=== PATIENT | female | born 1960 | race Caucasian/White ===

== ENCOUNTER → 2016-12-13 | Outpatient (REF) | payer BC | LOC: M SFHCWAGY 08:57 | PROVIDERS: ATTEND Nurse Practitioner Family | DX: Z12.4 Encounter for screening for malignant neoplasm of cervix (principal) ==

== ENCOUNTER → 2016-12-13 | Outpatient (CLI) | payer BC ==
--- NOTE | 2016-12-13 10:25 | REPMRS ---
Patient History The patient states she had a clinical breast exam in 12/25 Patient is postmenopausal and had first child at age 38. Family history of breast cancer in paternal aunt at age 50 or over and breast cancer in paternal grandmother at age 50 or over. Digital Woman Screen Mammo: December 13, 2016 - Exam #: [id number] Bilateral CC and MLO view(s) were taken. Technologist: Savanna Patterson, Technologist Prior study comparison: May 12, 2015, digital woman screen mammo performed at [facility] [employer] [place] [facility]. March 18, 2014, digital woman screen mammo performed at [facility] [employer] [place] [facility]. FINDINGS: There are scattered fibroglandular densities. There has been no change in the appearance of the mammogram from the prior studies. There is a mild amount of scattered fibroglandular density which is fairly symmetric. There is no interval development of dominant mass, architectural distortion, or clustered microcalcification suggestive of malignancy. ASSESSMENT: BI-RADS/ACR category 1 mammogram. Negative. Recommendation Routine screening mammogram in 1 year (for women over age 40). This mammogram was interpreted with the aid of an FDA-approved computer-aided dectection system. Electronically Signed By: Sorin Fields MD 12/13/16 1024
== END ==
LOC: M WHC 08:27
PROVIDERS: ATTEND Nurse Practitioner Family
DX: Z12.31 Encounter for screening mammogram for malignant neoplasm of breast (principal); Z78.0 Asymptomatic menopausal state; Z80.3 Family history of malignant neoplasm of breast

== ENCOUNTER → 2018-06-28 | Outpatient (CLI) | payer BC | LOC: M WUC 15:53 | DX: S62.657A Nondisplaced fracture of middle phalanx of left little finger, initial encounter for closed fracture (principal) | CPT/HCPCS: 73140 ==

== ENCOUNTER → 2018-09-25 | Outpatient (CLI) | payer BC ==
--- NOTE | 2018-09-25 10:01 | REP ---
RIGHT FINGERS, FOUR VIEWS: HISTORY: Foreign body. There is no acute fracture or dislocation. The joint spaces are normal in appearance. There is no radiopaque foreign body. IMPRESSION: There is no radiopaque foreign body. Electronically Signed by Roberto Redding MD 09/25/2018 10:04 A
== END ==
LOC: M WUC 09:26
PROVIDERS: ATTEND Nurse Practitioner Family
DX: S60.351A Superficial foreign body of right thumb, initial encounter (principal); X58.XXXA Exposure to other specified factors, initial encounter; Y92.89 Other specified places as the place of occurrence of the external cause

== ENCOUNTER → 2019-03-01 | Outpatient (CLI) | payer BC ==
--- NOTE | 2019-03-01 12:59 | REP ---
Lumbar spine three views: There are no comparisons. There is scoliosis convex right in the upper lumbar area. The vertebral body heights, interspacing alignment are unremarkable. The pedicles, facets and sacroiliac articulations are unremarkable. Impression: Scoliosis, otherwise negative lumbar spine. Electronically Signed by Maurice Hutchins MD 03/01/2019 12:51 P
== END ==
LOC: M WUC 10:25
PROVIDERS: ATTEND Physician Assistant
DX: M41.26 Other idiopathic scoliosis, lumbar region (principal)

== ENCOUNTER → 2020-03-29 | Outpatient (CLI) | payer BC ==
--- NOTE | 2020-03-29 12:29 | REP ---
Clinical: Shortness of breath. Technique: PA and lateral. Comparison: 04/03/2012. Findings: Mediastinum and cardiac silhouette are normal. Chronic emphysematous changes are suggested. No focal consolidation, effusion, or pneumothorax. Skeletal structures are intact. Impression: Findings suggest chronic emphysematous disease. If the patient remains symptomatic consider chest CT for further investigation. Electronically Signed by Julian Florentino MD 03/29/2020 12:21 P
== END ==
LOC: M WUC 12:04
PROVIDERS: ATTEND Family Medicine
DX: R91.8 Other nonspecific abnormal finding of lung field (principal); R06.02 Shortness of breath

== ENCOUNTER → 2020-06-24 | Outpatient (CLI) | payer BC ==
--- NOTE | 2020-06-24 10:05 | REP ---
INDICATION: EMPHYSEMA, COUGH COMPARISON: 04/03/2012 TECHNIQUE: Axial noncontrast images from the thoracic inlet to the upper abdomen with coronal and sagittal reformations. FINDINGS: Biapical and minimal lingular scarring is again appreciated and similar to prior examination. Lung harden demonstrate mild emphysematous changes and mild bronchiectasis. No consolidation, IV is suspicious nodule or mass lesion. No pleural effusion. No pneumothorax. Limited evaluation of the mediastinum demonstrates mild atherosclerotic changes. No cardiomegaly or pericardial effusion. No obvious adenopathy. Musculoskeletal structures are intact. IMPRESSION: 1. Chronic appearing changes and mild COPD/emphysematous disease. 2. No acute mediastinal or pleuroparenchymal process appreciated. <Electronically signed by Julian Florentino > 06/24/20 1002
== END ==
LOC: M RAD 08:37
PROVIDERS: ATTEND Nurse Practitioner Family
DX: J43.9 Emphysema, unspecified (principal); F17.210 Nicotine dependence, cigarettes, uncomplicated; R05 Cough

== ENCOUNTER → 2020-07-08 | Outpatient (CLI) | payer BC ==
[~2020-07-08] MED LIST: METHACHOLINE KIT (J7674) INH ONE
--- NOTE | 2020-07-08 10:05 | PFTRPT ---
Height: 64.50 Inches Weight: 95.00 Lbs BSA: 1.43 Diagnosis: R05 DATE: 07/08/2020 ORDERED BY: ANDRE Pardo. QUALITY: Study of excellent technical quality. PROCEDURE: Under protocol, methacholine was administered. At a dose of 10 mg or 63.75 CDUs, a 24% decline of the FEV1 was noted. PC of 6.39 is significant. Flow rates did return to baseline post-bronchodilator administration. IMPRESSION: Positive methacholine challenge study. MTDD
== END ==
LOC: M CARPUL 08:45
PROVIDERS: ATTEND Nurse Practitioner Family
DX: R05 Cough (principal); R94.2 Abnormal results of pulmonary function studies
CPT/HCPCS: 94070; J7674

== ENCOUNTER → 2020-07-10 | Outpatient (CLI) | payer SELFPAY | LOC: M LABSMTC 09:05 | PROVIDERS: ATTEND Pediatrics | DX: Z20.828 Contact with and (suspected) exposure to other viral communicable diseases (principal) ==

== ENCOUNTER → 2020-07-17 | Outpatient (CLI) | payer SELFPAY | LOC: M LABSMTC 08:52 | PROVIDERS: ATTEND Pediatrics | DX: Z20.828 Contact with and (suspected) exposure to other viral communicable diseases (principal) ==

== ENCOUNTER → 2021-06-16 | Outpatient (CLI) | payer BC | LOC: M LABSMTC 10:02 | PROVIDERS: ATTEND Pediatrics | DX: Z11.52 Encounter for screening for COVID-19 (principal) | CPT/HCPCS: C9803; U0003 ==

== ENCOUNTER → 2021-08-18 | Outpatient (REF) | payer BC ==
[~2021-08-18] MED LIST changes: +ALBU8.5H; +CALC600T61 PO; +CVS5000S2 SL; +IPRA6SP; -METHACHOLINE KIT (J7674) INH ONE
== END ==
LOC: M SFHCWAGY 13:30
PROVIDERS: ATTEND Nurse Practitioner Women's Health
DX: Z12.4 Encounter for screening for malignant neoplasm of cervix (principal)
CPT/HCPCS: 87624; G0123

== ENCOUNTER → 2021-08-18 | Outpatient (CLI) | payer BC ==
--- NOTE | 2021-08-18 11:01 | REPMRS ---
Patient History The patient states she has not had a clinical breast exam in over a year. Patient is postmenopausal and had first child at age 38. Family history of breast cancer at age 50 or over in paternal grandmother, breast cancer at age 50 or over in paternal aunt, prostate cancer in father, ovarian cancer at age 83 in mother. Patient states no breast complaints today. Patient has signed MRS History Sheet. Digital Woman Screen Mammo: August 18, 2021 - Exam #: [id number] Bilateral CC and MLO view(s) were taken. Technologist: Savanna Patterson, Technologist Prior study comparison: December 13, 2016, digital woman screen mammo performed at [facility]. May 12, 2015, digital woman screen mammo performed at [facility]. FINDINGS: The breast tissue is heterogeneously dense. This may lower the sensitivity of mammography. Screening. Digital screening (2D) mammography was performed bilaterally in the CC and MLO projections. Additionally, breast tomosynthesis (3D mammography) was performed bilaterally in the CC and MLO projections. Todays exam was compared to the prior exam/exams. By history, the patient has no complaints of a palpable breast abnormality or other significant breast complaints. The Volpara volumetric breast density category is C, the breasts are heterogenously dense which may obscure small masses. The breasts are unchanged in size and shape. There are no rhianna-soft tissue densities or spiculated masses. There is no internal architectural distortion. There are no suspicious rhianna-calcific clusters. Skin thickening or nipple retraction is not present. IMPRESSION: BI-RADS Category 2- Benign Findings. There is no evidence of malignant alteration of the breasts. Followup examination recommended in one year. This mammogram [facility] FDA approved computer aided detection system for mammography. The lifetime Tyrer-Cuzick score is 17.0% Negative x-ray reports should not delay surgical consultation if a dominant or clinically suspicious mass is present. Due to the density of the breasts, MRI/whole breast screening ultrasound is warranted. Not all breast cancers can be identified by mammography. Therefore, we recommend that you continue to perform regular breast self-examination and physical examination and then promptly contact your physician of any concerns or changes. Adenosis and dense breasts may obscure an underlying neoplasm. No significant changes when compared with prior studies. Assessment: BI-RADS/ACR category 2 mammogram. Benign Findings. Recommendation Routine screening mammogram of both breasts in 1 year. Electronically Signed By: Teo Lan MD 08/18/21 1100
== END ==
LOC: M WHC 08:45
PROVIDERS: ATTEND Nurse Practitioner Women's Health
DX: Z12.31 Encounter for screening mammogram for malignant neoplasm of breast (principal)

== ENCOUNTER → 2021-10-27 | Outpatient (CLI) | payer BC | LOC: M LABSMTC 09:08 | PROVIDERS: ATTEND Anesthesiology | DX: Z01.818 Encounter for other preprocedural examination (principal); Z11.52 Encounter for screening for COVID-19 ==

== ENCOUNTER 2021-10-31 10:38 | Day surgery (SDC) | payer BC ==
[~2021-10-31] VITALS: Ht 162.6 cm; Wt 44.2 kg
[~2021-10-31 10:38] MED LIST changes: +LR 1,000 ML IV ONE
[2021-10-31] MEDS ORDERED: MIDAZOLAM INJ 2MG/2ML VIAL (J2250 PER 1MG) As Ordered ONE (13:03)
[2021-10-31] MEDS ORDERED: dexameTHASONE 4 MG/ML 1ML VIAL (J1100 PER 1MG) As Ordered ONE (13:03)
[2021-10-31] MEDS ORDERED: fentaNYL 100 MCG/2 ML INJECTION As Ordered ONE (13:03)
[2021-10-31] MEDS ORDERED: propofoL 200 MG/20 ML VIAL As Ordered ONE ×2 (13:03→13:07)
[2021-10-31] MEDS ORDERED: METOCLOPRAMIDE INJ 10MG/2ML VIAL (J2765 PER 1) As Ordered ONE (13:03)
[2021-10-31] MEDS ORDERED: LIDOCAINE 2% 100MG/5ML SDV (FOR ANES.) As Ordered ONE (13:03)
[2021-10-31] MEDS ORDERED: ONDANSETRON 4MG/2ML VIAL As Ordered ONE (13:03)
[2021-10-31] MEDS ORDERED: BACITRACIN OINTMENT 30GM TUBE As Ordered ONE (13:58)
[2021-10-31] MEDS ORDERED: LIDOCAINE W/EPINEPHRINE 1% 20ML VIAL As Ordered ONE (13:58)
[2021-10-31 15:25] VITALS: BP 142/64
== END 2021-10-31 15:30 | disposition home or self-care (01) ==
LOC: M SDC 10:38
PROVIDERS: ATTEND Otolaryngology
DX: B07.8 Other viral warts (principal); M19.90 Unspecified osteoarthritis, unspecified site; G47.62 Sleep related leg cramps; J45.20 Mild intermittent asthma, uncomplicated; J43.9 Emphysema, unspecified; E78.5 Hyperlipidemia, unspecified; M54.50 Low back pain, unspecified; F17.210 Nicotine dependence, cigarettes, uncomplicated; Z88.1 Allergy status to other antibiotic agents; Z88.5 Allergy status to narcotic agent; Z88.8 Allergy status to other drugs, medicaments and biological substances; Z79.899 Other long term (current) drug therapy
CPT/HCPCS: 30117; 88305; J1100; J2250; J2405; J2765; J3010

== ENCOUNTER 2022-05-05 08:33 | Emergency (ER) | payer BC ==
[~2022-05-05] VITALS: Ht 162.6 cm; Wt 44.3 kg
[~2022-05-05 08:33] MED LIST changes: -LR 1,000 ML IV ONE
[2022-05-05] MEDS ORDERED: VITMTA PO (08:43)
[2022-05-05] MEDS ORDERED: traMADol 50 MG TAB PO ONE (11:10)
[2022-05-05] MEDS ORDERED: ULTR50TA8 PO (12:20)
[2022-05-05] MEDS ORDERED: MEDR4PAK PO (12:20)
[2022-05-05 12:32] VITALS: BP 125/69
== END 2022-05-05 12:33 | disposition home or self-care (01) ==
LOC: M ED 08:33
DX: M51.26 Other intervertebral disc displacement, lumbar region (principal); M51.37 Other intervertebral disc degeneration, lumbosacral region; M43.16 Spondylolisthesis, lumbar region; M48.061 Spinal stenosis, lumbar region without neurogenic claudication; J45.909 Unspecified asthma, uncomplicated; F17.200 Nicotine dependence, unspecified, uncomplicated; N28.1 Cyst of kidney, acquired; I25.10 Atherosclerotic heart disease of native coronary artery without angina pectoris; Z88.1 Allergy status to other antibiotic agents; Z88.5 Allergy status to narcotic agent; Z88.8 Allergy status to other drugs, medicaments and biological substances; Z79.51 Long term (current) use of inhaled steroids; Z79.899 Other long term (current) drug therapy

== ENCOUNTER 2022-05-10 05:57 | Emergency (ER) | payer BC ==
[~2022-05-10] VITALS: Ht 162.6 cm; Wt 42.5 kg
[~2022-05-10 05:57] MED LIST changes: +MEDR4PAK PO; +ULTR50TA8 PO; +VITMTA PO
[2022-05-10] MEDS ORDERED: ACET1TAB55 PO (06:06)
[2022-05-10] MEDS ORDERED: NS 1,000 ML IV ONE (06:35)
[2022-05-10 06:49] LABS: BASO # 0.1 10^3/uL (0.0-0.2); BASO % 0.4 % (0.0-1.0); EOS % 0.1 % (0.0-3.0); HEMATOCRIT 42.3 % (36.0-47.0); HEMOGLOBIN 14.1 g/dl (12.0-15.5); LYMPH # 2.3 10^3/uL (1.5-5.0); LYMPH % 12.3 % (24.0-44.0); MEAN CORPUSCULAR HGB CONC 33.3 g/dl (32.0-36.5); MEAN CORPUSCULAR VOLUME 86.9 fl (80.0-96.0); MONO # 1.3 10^3/uL (0.0-0.8); MONO % 7.1 % (2.0-8.0); NEUTROPHILS # 14.7 10^3/uL (1.5-8.5); NEUTROPHILS % 79.7 % (36.0-66.0); PLATELET COUNT, AUTOMATED 254 10^3/uL (150-450); RED BLOOD COUNT 4.87 10^6/uL (4.00-5.40); WHITE BLOOD COUNT 18.4 10^3/uL (4.0-10.0)
[2022-05-10 07:28] LABS: CK-MB VALUE MASS 1.4 NG/ML (<3.6); MB/CK RELATIVE INDEX 1.63 (< OR =4)
[2022-05-10 07:33] LABS: ALBUMIN 3.6 GM/DL (3.2-5.2); ALT/SGPT 17 U/L (12-78); BILIRUBIN,DIRECT 0.4 MG/DL (0.0-0.2); BILIRUBIN,TOTAL 0.7 MG/DL (0.2-1.0); BLOOD UREA NITROGEN 10 MG/DL (7-18); CALCIUM LEVEL 9.3 MG/DL (8.8-10.2); CARBON DIOXIDE LEVEL 26 MEQ/L (21-32); CHLORIDE LEVEL 94 MEQ/L (98-107); CREATININE FOR GFR 0.65 MG/DL (0.55-1.30); GLOMERULAR FILTRATION RATE > 60.0 (>45); GLUCOSE, FASTING 86 MG/DL (70-100); LIPASE 82 U/L (73-393); NT-PRO BNP 209 PG/ML (<125); POTASSIUM SERUM 4.3 MEQ/L (3.5-5.1); SODIUM LEVEL 128 MEQ/L (136-145); THYROXINE (T4) 14.5 UG/DL (4.5-12.0); TOTAL PROTEIN 7.2 GM/DL (6.4-8.2)
[2022-05-10 09:00] VITALS: BP 147/70
[2022-05-10] MEDS ORDERED: AMOX500T PO (09:04)
[2022-05-10] MEDS ORDERED: IBUP80TA PO (09:33)
== END 2022-05-10 09:34 | disposition home or self-care (01) ==
LOC: M ED 05:57
DX: J06.9 Acute upper respiratory infection, unspecified (principal); J44.9 Chronic obstructive pulmonary disease, unspecified; D72.829 Elevated white blood cell count, unspecified; F17.200 Nicotine dependence, unspecified, uncomplicated; Z88.1 Allergy status to other antibiotic agents; Z88.5 Allergy status to narcotic agent; Z88.8 Allergy status to other drugs, medicaments and biological substances

== ENCOUNTER → 2022-06-26 | Outpatient (CLI) | payer BC ==
[~2022-06-26] MED LIST changes: +ACET1TAB55 PO; +AMOX500T PO; +IBUP80TA PO
[2022-06-26 10:16] LABS: BLOOD UREA NITROGEN 9 MG/DL (7-18); CREATININE FOR GFR 0.57 MG/DL (0.55-1.30); GLOMERULAR FILTRATION RATE > 60.0 (>45)
== END ==
LOC: M LAB 08:53
PROVIDERS: ATTEND Physical Medicine & Rehabilitation
DX: M51.36 Other intervertebral disc degeneration, lumbar region (principal)

== ENCOUNTER → 2022-06-29 | Outpatient (CLI) | payer BC ==
[~2022-06-29] MED LIST changes: +PROHANCE 279.3MG/ML 5ML VIAL ONE
== END ==
LOC: M PLAIMG 13:37
PROVIDERS: ATTEND Physical Medicine & Rehabilitation
DX: M51.26 Other intervertebral disc displacement, lumbar region (principal)

== ENCOUNTER → 2023-02-08 | Outpatient (CLI) | payer BC ==
[~2023-02-08] MED LIST changes: -PROHANCE 279.3MG/ML 5ML VIAL ONE
== END ==
LOC: M RAD 07:42
PROVIDERS: ATTEND Family Medicine
DX: Z87.891 Personal history of nicotine dependence (principal)

== ENCOUNTER 2023-02-24 09:00 | Emergency (ER) | payer BC ==
[~2023-02-24] VITALS: Ht 170.2 cm; Wt 43.7 kg
[2023-02-24 09:02] VITALS: TEMP 97
[2023-02-24 11:58] LABS: BASO # 0.1 10^3/uL (0.0-0.2); BASO % 0.9 % (0.0-1.0); EOS # 0.8 10^3/uL (0.0-0.5); EOS % 8.1 % (0.0-3.0); HEMATOCRIT 42.4 % (36.0-47.0); LYMPH # 2.6 10^3/uL (1.5-5.0); LYMPH % 26.2 % (24.0-44.0); MONO # 0.5 10^3/uL (0.0-0.8); MONO % 5.1 % (2.0-8.0); NEUTROPHILS # 5.8 10^3/uL (1.5-8.5); NEUTROPHILS % 59.5 % (36.0-66.0); PLATELET COUNT, AUTOMATED 221 10^3/uL (150-450); RED BLOOD COUNT 4.82 10^6/uL (4.00-5.40); WHITE BLOOD COUNT 9.8 10^3/uL (4.0-10.0)
[2023-02-24 12:24] LABS: CK-MB VALUE MASS 2.8 NG/ML (<3.6)
[2023-02-24 12:25] LABS: ALBUMIN 3.9 G/DL (3.2-5.2); ALKALINE PHOSPHATASE 120 U/L (46-116); ALT/SGPT 19 U/L (7.0-40); AST/SGOT 25 U/L (<34); BILIRUBIN,DIRECT 0.1 MG/DL (<0.4); BILIRUBIN,TOTAL 0.4 MG/DL (0.3-1.2); BLOOD UREA NITROGEN 10 MG/DL (9-23); CALCIUM LEVEL 8.7 MG/DL (8.3-10.6); CARBON DIOXIDE LEVEL 28 MMOL/L (20-31); CHLORIDE LEVEL 96 MMOL/L (98-107); CPK CREATINE PHOSPHOKINASE 137 U/L (34-145); CREATININE FOR GFR 0.53 MG/DL (0.55-1.30); GLOMERULAR FILTRATION RATE > 60.0 (>45); GLUCOSE, FASTING 82 MG/DL (74-106); MB/CK RELATIVE INDEX 2.04 (< OR =4); POTASSIUM SERUM 4.4 MMOL/L (3.5-5.1); SODIUM LEVEL 131 MMOL/L (136-145); TOTAL PROTEIN 6.5 G/DL (5.7-8.2)
[2023-02-24 13:40] VITALS: BP 142/76; O2SAT 94
== END 2023-02-24 13:42 | disposition home or self-care (01) ==
LOC: M ED 09:00
DX: J44.1 Chronic obstructive pulmonary disease with (acute) exacerbation (principal); F17.200 Nicotine dependence, unspecified, uncomplicated; Z88.5 Allergy status to narcotic agent; Z88.8 Allergy status to other drugs, medicaments and biological substances; Z88.1 Allergy status to other antibiotic agents; Z79.51 Long term (current) use of inhaled steroids; Z79.899 Other long term (current) drug therapy

== ENCOUNTER 2023-02-26 19:10 | Emergency (ER) | payer BC ==
[2023-02-26] MEDS ORDERED: NS 500 ML IV ONE (19:35)
[2023-02-26] MEDS ORDERED: ALBUTEROL SULFATE 2.5MG/0.5ML INH NEB SOLN NEB ONE (19:35)
[2023-02-26] MEDS ORDERED: methylPREDNISolone 125MG 2ML VIAL IV ONE (19:35)
[2023-02-26] MEDS ORDERED: BENZONATATE 100MG CAPSULE PO ONE (19:50)
[2023-02-26 20:10] VITALS: O2SAT 100
[2023-02-26 20:12] VITALS: BP 164/78; TEMP 97.5
[2023-02-26 20:38] LABS: BLOOD UREA NITROGEN 12 MG/DL (9-23); CALCIUM LEVEL 8.9 MG/DL (8.3-10.6); CARBON DIOXIDE LEVEL 28 MMOL/L (20-31); CHLORIDE LEVEL 96 MMOL/L (98-107); CREATININE FOR GFR 0.55 MG/DL (0.55-1.30); GLOMERULAR FILTRATION RATE > 60.0 (>45); GLUCOSE, FASTING 116 MG/DL (74-106); POTASSIUM SERUM 4.7 MMOL/L (3.5-5.1); SODIUM LEVEL 130 MMOL/L (136-145)
[2023-02-26] MEDS ORDERED: ADV250INH INH (21:51)
[2023-02-26] MEDS ORDERED: MEDR4PAK PO (21:51)
[2023-02-26 21:53] LABS: THYROXINE (T4) 11.8 UG/DL (4.5-10.9)
[2023-02-26 21:54] LABS: THYROID STIMULATING HORMONE 2.274 uIU/ML (0.55-4.78)
[2023-02-27 22:23] LABS: HEPATITIS B SURFACE ANTIGEN NEGATIVE (NEGATIVE)
[2023-02-27 22:36] LABS: HIV SCREEN CENTAUR SOURCE NEGATIVE (NEGATIVE)
== END 2023-02-26 22:28 | disposition home or self-care (01) ==
LOC: EDBD 19:10 → M ED 19:10
DX: J45.901 Unspecified asthma with (acute) exacerbation (principal); J44.9 Chronic obstructive pulmonary disease, unspecified; Z88.5 Allergy status to narcotic agent; Z88.1 Allergy status to other antibiotic agents; Z88.8 Allergy status to other drugs, medicaments and biological substances; Z79.899 Other long term (current) drug therapy; Z79.51 Long term (current) use of inhaled steroids
CPT/HCPCS: 36600; 71046; 80048; 83605; 83880; 84436; 84443; 84484; 86803; 87340; 87389; 87486; 87581; 87633; 87798; 93005; 93041; 94640; 96374; 99284; J2930

== ENCOUNTER → 2023-05-21 | Outpatient (CLI) | payer BC ==
[~2023-05-21] MED LIST changes: +ADV250INH INH
== END ==
LOC: M WHC 08:42
PROVIDERS: ATTEND Nurse Practitioner Family
DX: Z12.31 Encounter for screening mammogram for malignant neoplasm of breast (principal)

== ENCOUNTER → 2023-05-28 | Outpatient (CLI) | payer BC | LOC: M RAD 08:30 | PROVIDERS: ATTEND Nurse Practitioner Family | DX: J43.9 Emphysema, unspecified (principal); R91.8 Other nonspecific abnormal finding of lung field; F17.218 Nicotine dependence, cigarettes, with other nicotine-induced disorders; E04.1 Nontoxic single thyroid nodule ==

== ENCOUNTER → 2023-06-25 | Outpatient (CLI) | payer BC | LOC: M WHC 10:00 | PROVIDERS: ATTEND Nurse Practitioner Family | DX: Z12.31 Encounter for screening mammogram for malignant neoplasm of breast (principal) ==

== ENCOUNTER → 2023-06-25 | Outpatient (REF) | payer BC | LOC: M SFHCWAGY 13:13 | PROVIDERS: ATTEND Nurse Practitioner Family | DX: Z12.4 Encounter for screening for malignant neoplasm of cervix (principal); Z01.419 Encounter for gynecological examination (general) (routine) without abnormal findings; Z77.9 Other contact with and (suspected) exposures hazardous to health ==

== ENCOUNTER → 2023-08-13 | Outpatient (CLI) | payer BC | LOC: M WHC 12:22 | PROVIDERS: ATTEND Family Medicine | DX: R91.1 Solitary pulmonary nodule (principal) ==

== ENCOUNTER → 2024-07-17 | Outpatient (CLI) | payer BC | LOC: M RAD 08:32 | PROVIDERS: ATTEND Internal Medicine Pulmonary Disease | DX: Z87.891 Personal history of nicotine dependence (principal) ==

== ENCOUNTER → 2025-08-26 | Outpatient (CLI) | payer MEDICARE, BC ==
[~2025-08-26] MED LIST changes: -ADV250INH INH; +ADVA1AER9 INH
== END ==
LOC: M RAD 07:28
PROVIDERS: ATTEND Internal Medicine Pulmonary Disease
DX: Z12.2 Encounter for screening for malignant neoplasm of respiratory organs (principal); J98.4 Other disorders of lung; R91.8 Other nonspecific abnormal finding of lung field; F17.218 Nicotine dependence, cigarettes, with other nicotine-induced disorders